=== PATIENT | female | born 1945 | race African-American/Black ===

== ENCOUNTER 2016-11-23 10:18 | Emergency (ER) | payer OTHER ==
[2016-11-23 10:23] VITALS: BP 146/108
[2016-11-23] MEDS ORDERED: NORCO-10 PO ONE (10:50)
--- NOTE | 2016-11-23 10:52 | PROVIDER DOCUMENTATION ---
HPI-Musculoskeletal Pain/Inj - GENERAL Chief Complaint: Extremity Pain Stated Complaint: RT KNEE PAIN Time Seen by Provider: 11/23/16 10:25 Source: patient - HX OF PRESENT ILLNESS-MUSKULOSKELTAL Nature of Presenting Problem: Pt is a 71 y/o F c chief complaint of R knee pain x 2 weeks. Pt denies any injury. She states she was taken off her pain medication 2 weeks ago by her PCP. She has had L knee surgery last year by Dr. Moore and was told she would have to have the R knee replaced this year. Pt denies any fever, chills, popliteal pain, or swelling distal to the knee, or calf tenderness. On arrival , pt is in minimal distress. Review of Systems - Adult - REVIEW OF SYSTEMS - ADULT Constitutional: reports: no symptoms reported. denies: chills, fatique Eyes: reports: no symptoms reported. denies: blurred vision, double vision Ears, Nose, Mouth & Throat: reports: no symptoms reported. denies: ear pain, nose pain, throat pain Cardiovascular: reports: no symptoms reported. denies: chest pain, orthopnea Respiratory: reports: no symptoms reported. denies: cough, shortness of breath , wheezing Gastrointestinal: reports: no symptoms reported. denies: abdominal pain, nausea Genitourinary: reports: no symptoms reported. denies: dysuria, flank pain, hesitency Musculoskeletal: reports: bone pain, joint pain, joint swelling Integumentary: reports: no symptoms reported. denies: itching, rash Neurological: reports: no symptoms reported. denies: numbness, paresthesia Psychiatric: reports: no symptoms reported. denies: anxiety, emotional problems Endocrine: reports: no symptoms reported. denies: cold intolerance, heat intolerance Hematologic/Lymphatic: reports: no symptoms reported. denies: blood clots, low blood count Allergic/Immunologic: reports: no symptoms reported. denies: allergic reactions , eczema All Other Systems: Reviewed and Negative Past History - Adult - PAST MEDICAL HISTORY-ADULT Review of Records: reports: Old Records Reviewed, Nursing Assessment Review, Medications Reviewed, Social history reviewed & non-contributory. Major Childhood Illnesses: reports: denies history Cardiovascular: reports: CHF, HTN, hyperlipidemia Respiratory: reports: denies history Gastrointestinal: reports: colitis, GERD Obstetrical/Gynecological: reports: denies history Genitourinary: reports: denies history Musculoskeletal: reports: denies history Neurological: reports: denies history Psychiatric: reports: depression Endocrine/Immune: reports: Diabetes Diabetes Type: Type 2 Diabetes controlled by:: PO Meds Other Conditions: reports: denies history - PRIOR SURGERIES/PROCEDURES Surgical/Procedure History: reports: joint replacement (L knee, 2016) - IMMUNIZATION STATUS Childhood Immunizations: See Nurse Assessment Flu Vaccine: See Nurse Assessment - FAMILY HISTORY Family History: reviewed, not pertinent - SOCIAL HISTORY Smoking: denies Substance Use: none/never Alcohol Use Frequency: never Living Situation: family Physical Exam-Injury Related - Physical Exam-Injury Related Initial Vital Signs Reviewed: Yes General Appearance: appears well, alert, no apparent distress Eyes: PERRL/EOMI, pink conjunctivae Head, Ears, Nose, Mouth & Throat: normocephalic/atraumatic, moist mucous membranes, normal ENT inspection Neck: non-tender, normal inspection Respiratory: chest non-tender, lungs clear, normal breath sounds Cardiovascular: normal peripheral pulses, regular rate, rhythm, no edema Abdominal Exam: normal bowel sounds, non tender, soft Back Exam: normal inspection, no CVA tenderness, no vertebral tenderness Extremity: normal range of motion, normal gait, swelling (mild swelling superior to R knee), tenderness (tenderness superior to R patella, no pop-fossa tenderness, no calf tenderness) Integumentary: normal color, warm/dry, blanching Neurologic: grossly normal, no motor/sensory deficits Psych/Mental Status: normal mood/affect, normal thought content, normal thought process, oriented x 3 - Glascow Coma Score Best Eye Response ([place]): (4) open spontaneously Best Verbal Response ([place]): (5) oriented Best Motor Response ([place]): (6) obeys commands Progress - PLAN OF CARE/RESULTS Progress/Plan/Lab Results: Orders Category Date Time Status KNEE 3 VIEWS RIGHT [RAD] Stat Exams 11/23/16 10:38 Taken Hydrocodone/APAP 10 mg/325 mg [[place]-10] Med 11/23/16 10:50 Discontinued 1 each PO NOW ONE Vital Signs - 24 hr 11/23/16 10:21 Temperature 98.0 F Pulse Rate 88 Respiratory 18 Rate Blood Pressure 146/108 O2 Sat by Pulse 99 Oximetry - XRAY 1 XRAY: Right XRAY Study: Knee Impression: Abnormal (advanced degenerative change, no fx, no discloation) Departure - Departure Time of Disposition Order: 11:02 DIAGNOSIS: Arthritis Knee pain, right Qualifiers: Chronicity: acute Qualified Code(s): M25.561 - Pain in right knee Disposition: HOME 01 Certified Medical Emergency: Emergent Condition: Stable Additional Instructions: FOLLOW UP WITH YOUR PRIMARY CARE PHYSICIAN FOR FURTHER MANAGEMENT OF PAIN TO YOUR KNEE. FOLLOW UP WITH DR. MOORE FOR EVALUATION OF KNEE PAIN AND POSSIBLE SURGERY. ED Follow Up Instructions: You have been treated by a care provider in the Emergency Department. These instructions are being provided to you so you can have an understanding of how to care for yourself upon discharge. Upon discharge from the Emergency Department, you are responsible for making arrangements for follow-up care by a physician of your choice. Take all prescribed medications as directed. Return to the Emergency Department immediately for any new or worsening symptoms. You may call the Physician Referral phone number at [phone] to obtain a list of Physicians who are taking new patients. Referrals: Cornelio Cisneros MD [Primary Care Provider] - Bobo Moore MD [STAFF PHYSICIAN] - Attestation - Physician/ MICHELE Attestation Patient care was provided by Advanced Practice Provider:: Yes Advanced Practice Provider:: Salas José Advanced Practice Provider documentation review:: The Mid-level provider documentation, treatment plan and medical decision making was reviewed by the physician who agrees with all treatment and medical decision making by the MLP.
[2016-11-23] MEDS ORDERED: NORCO-10 ONE (11:39)
--- NOTE | 2016-11-23 14:32 | Diag Imaging Result Document ---
PROCEDURE NAME: KNEE 3 VIEWS RIGHT - 11/23/2016 PLAIN RADIOGRAPH THE RIGHT KNEE, 3 VIEWS: COMPARISON: None available. FINDINGS: There is tricompartmental degenerative change that is worst at the lateral compartment and patellofemoral compartment. Marginal osteophytes are noted. There is significant loss of joint space height at the lateral compartment. There is degenerative sclerosis at the lateral compartment. There is no definite fracture, dislocation, or intrinsic osseous lesion otherwise. There is likely a small effusion tracking into the suprapatellar bursa. IMPRESSION: Tricompartmental degenerative joint disease, worst at the lateral compartment as described. [facility]
== END 2016-11-23 11:48 | disposition home or self-care (01) ==
LOC: ED 10:18
DX: M17.11 Unilateral primary osteoarthritis, right knee (principal); M25.561 Pain in right knee; M25.461 Effusion, right knee; I10 Essential (primary) hypertension; E78.5 Hyperlipidemia, unspecified; E11.9 Type 2 diabetes mellitus without complications; Z96.652 Presence of left artificial knee joint
CPT/HCPCS: 99283